=== PATIENT | female | born 1955 | race Asian ===

== ENCOUNTER 2024-06-04 10:08 | Outpatient (AMB) | payer OTHER, SELFPAY ==
[2024-06-04 10:19] VITALS: BP 108/60; PULSE 77; RESP 12; O2SAT 97; BMI 25.8
--- NOTE | 2024-06-04 10:19 | MHC.PC.OV ---
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: Present Accompanied by: Daughter Is last menstrual period known: No Post menopausal: Yes Patient : No Allergies No Known Allergies Allergy (Verified 06/04/24 10:25) Medication List - Last Reconciled 06/04/24 by Andrew Garcia MD calcium acetate 667 mg PO TID cholecalciferol (vitamin D3) 25 mcg PO DAILY Tobacco use date assessed: 06/04/24 Fall risk assessment: No Falls in past year Last assessed Fall Risk: 06/04/24 Dental Screening Dental Screen Date: 06/04/24 Did you have a dental visit in the last 12 months?: No Did you have a dental problem in the last 6 months where you did not have access to dental care?: Yes Was dental information given to patient?: Patient has dentist HPI Establish Care HPI Details New Patient? ?? Prior PCP:?No pcp x 8 yrs Acute issue(s):? h/o lymphoma and had aggressive chemo and never went back. She refuses any treatment. Only wants palliative interventions. ?? PMHx: Lymphoma dx 9 yrs ago. Hyperlipidemia and was on statins. Osteoarthris b/L knees. b/L pneumonia early 2023. Boderline DM. SurgHx:? None FHx:? Mom: Stomach CA. Dad: cirrhosis. Brother: Stomach CA SocHx: Smokes and does not want to quit. EtOH: None. PFSH Social History Housing: Apartment Patient Tobacco Use Status: Current everyday Tobacco user Tobacco use type: Cigarette e-Cigarette/Vaping Use: Never Used Patient : No service: No Current occupational status: retired Cognitive needs: No Hearing needs: No Vision needs: Yes Questionnaire PHQ-9 Over the last 2 weeks, how often have you been bothered by any of the following problems? 1. Little interest or pleasure in doing things: more than half the days 2. Feeling down, depressed, or hopeless: not at all 3. Trouble falling or staying asleep, or sleeping too much: nearly every day 4. Feeling tired or having little energy: nearly every day 5. Poor appetite or overeating: nearly every day 6. Feeling bad about yourself - or that you are a failure or have let yourself or your family down: not at all 7. Trouble concentrating on things, such as reading the newspaper or watching television: nearly every day 8. Moving or speaking so slowly that other people could have noticed. Or the opposite - being so fidgety or restless that you have been moving around a lot more than usual: not at all 9. Thoughts that you would be better off or of hurting yourself in some way: not at all Total score: 14 Depression Screening Interpretation: Positive Depression Screening Done: Yes 69665 - PHQ-9 Billing: Yes Source: Developed by Drs. Boaz Fuentes, Brielle Arellano, Lei Morillo and colleagues, with an educational mckenzie from [employer]. Thrive Questionnaire Date Thrive assessed: 06/04/24 I am a: Parent/Caregiver What is your living situation today?: I have a steady place to live Within the past 12 months, did the food you bought not last and you didn't have the money to get more?: Never true Within the past 12 months, did you worry whether your food would run out before you got money to buy more?: Never true Do you have trouble paying for medicines?: No Do you have trouble getting transportation to medical appointments?: No Do you have trouble paying your heating and electricity bill?: No Do you have trouble taking care of your child, family member or friend?: No Do you have trouble with day-to-day activities such as bathing, preparing meals, shopping, managing finances, etc.?: Yes Are you currently unemployed and looking for a job?: No Are you interested in more education?: No Please select the resources that you would like help with: None Currently or been in a relationship where the following occur: No concerns reported THRIVE Score: 0 AUDIT C Alcohol Use Questionnaire (AUDIT-C) 1. How often do you have a drink containing alcohol?: Never 3. How often do you have six or more drinks on one occasion?: Never Total Score: 0 VICKY-7 AMB Questionnaire VICKY-7 Date VICKY - 7 assessed: 06/04/24 Feeling nervous, anxious, or on edge: 1 = Several days Not being able to stop or control worryin = Several days Worrying too much about different things: 1 = Several days Trouble relaxin = Not at all Being so restless that it is hard to sit still: 0 = Not at all Becoming easily annoyed or irritable: 0 = Not at all Feeling afraid as if something awful might happen: 0 = Not at all Total VICKY-7 score (0-4 normal; 5-9 mild; 10-14 moderate; 15-21 severe): 3 Source: Developed by Drs. Boaz Fuentes, Brielle Arellano, Lei Morillo and colleagues, with an educational mckenzie from [employer]. VICKY-7 Assessment Billing VICKY-7 Assessment Tool: VICKY-7 Assessment 45473 Review of Systems Const Denies chills, Denies fatigue, Denies fever(s), Denies headache(s) and Denies weakness ENT Denies dizziness and Denies headache(s) Card Denies chest pain, Denies lightheadedness, Denies dyspnea and Denies other (Palpitations) Resp Denies cough, Denies dyspnea, Denies wheezing and Denies other ( shortness of breath) Musc Denies numbness and Denies tingling Neuro Denies dizziness, Denies headache(s), Denies numbness, Denies tingling, Denies paresthesias and Denies weakness Psych Denies anxiety and Denies depression Endo Denies fatigue Aller/Immun Denies wheezing Physical exam (Primary Care) Vital Signs: Last Vital Signs Pulse 77 06/04/24 10:19 Resp 12 06/04/24 10:19 BP 108/60 06/04/24 10:19 Pulse Ox 97 06/04/24 10:19 Oxygen Delivery Method Room Air 06/04/24 10:19 BMI result Body Mass Index 25.8 Tobacco/Smoking Status: Tobacco use Status Tobacco use date assessed 06/04/24 06/04/24 10:29 Patient Tobacco Use Status Current everyday Tobacco 06/04/24 10:29 Tobacco use type Cigarette 06/04/24 10:29 e-Cigarette/Vaping Use Never Used 06/04/24 10:29 PHQ-9: PHQ-9 Score PHQ-9: Total score 14 06/04/24 10:29 Depression Screening Interpretation: Positive Thrive Assessment: Date of Thrive Assessment Date Thrive assessed 06/04/24 06/04/24 10:25 Currently or been in a relationship where the following occur: No concerns reported Const General: no acute distress and well developed Nutritional Appearance: well nourished Orientation/consciousness: patient oriented x3 [facility] Head: Yes normocephalic and Yes atraumatic Eyes General: appearance normal, both eyes and all related structures Pupils: Equal, round and reactive pupils present EOM: EOMs intact bilaterally Resp Effort & Inspection: normal respiratory effort Auscultation: clear to auscultation bilaterally Cardio Rate: regular rate Rhythm: regular rhythm Heart sounds: S1 normal heart sound present, S2 normal heart sound present, no gallops, no murmurs and no rubs Neuro General: patient oriented x3 and gait normal Cranial nerves: Yes Equal, round and reactive pupils present Psych Affect: normal affect Coding Level of Care Code New Pt Level 3 (28432) Diagnoses History of lymphoma Z85.72 Osteoarthritis of knees, bilateral M17.0 Hyperlipidemia E78.5 Laboratory exam ordered as part of routine general medical examination Z00.00 Elevated fasting glucose R73.01 Smoker F17.200 Additional Codes VICKY-7 Assessment Billing - VICKY-7 Assessment Tool: VICKY-7 Assessment 03553 ([id number]) PHQ-9 - 48218 - PHQ-9 Billing: Yes ([id number]) Assessment & Plan Assessment & Plan (1) History of lymphoma: Code(s): Z85.72 - Personal history of non-Hodgkin lymphomas Category: Medical Plan: History?of?lymphoma?and?site?unknown Patient?is?adamant?that?she?does?not?want?any?treatment?for?this?and?just?palliative?care. Has?had?a?history?of?what?sounds?like?1?round?of?chemotherapy?and?then?discontinued?it?and?never?went?back?to?Hematology-Oncology.??Declines?any?referral?to?Hematology-Oncology. Will?await?prior?records?to?review Checking?labs?and?will?discuss?with?patient (2) Osteoarthritis of knees, bilateral: Code(s): M17.0 - Bilateral primary osteoarthritis of knee Category: Medical Plan: Bilateral?knee?pain?and ?[id number]??arthritis Continue?Tylenol Ice/heat Topicals Apparently?had?gel?injections?in?the?past?but?these?no?longer?work Will?follow-up?on?notes?when?I?receive?them (3) Hyperlipidemia: Code(s): E78.5 - Hyperlipidemia, unspecified Category: Medical Plan: History?of?hyperlipidemia?and?prior?statin?use.??No?longer?on?statin?medication. Will?check?labs?and?advise?patient (4) Laboratory exam ordered as part of routine general medical examination: Code(s): Z00.00 - Encounter for general adult medical examination without abnormal findings Category: Medical Plan: Check?labs (5) Elevated fasting glucose: Code(s): R73.01 - Impaired fasting glucose Category: Medical Plan: Check?labs?including?A1c (6) Smoker: Code(s): F17.200 - Nicotine dependence, unspecified, uncomplicated Category: Social Hx Plan: Advised?only?fresh?air?in?lungs?but?patient?refuses?to?quit Orders: Orders Comprehensive [place]. Panel Fast Today Z00.00 - Encounter for general adult medical examination without abnormal findings Complete Blood Count Auto Diff Today Z00.00 - Encounter for general adult medical examination without abnormal findings UA and rflx microscopic Today Z00.00 - Encounter for general adult medical examination without abnormal findings TSH reflex Free T4 Today Z00.00 - Encounter for general adult medical examination without abnormal findings Microalbumin, Random (w Creat) Today I10 - Essential (primary) hypertension Lipid Panel Today Z00.00 - Encounter for general adult medical examination without abnormal findings Vitamin D 25-OH Total Today E55.9 - Vitamin D deficiency, unspecified Hemoglobin A1c Today R73.01 - Impaired fasting glucose
== END 2024-06-04 10:57 | disposition home or self-care (01) ==
PROVIDERS: PCP Family Medicine; Visit Provider Family Medicine
DX: Z85.72 Personal history of non-Hodgkin lymphomas (principal); M17.0 Bilateral primary osteoarthritis of knee; E78.5 Hyperlipidemia, unspecified; Z00.00 Encounter for general adult medical examination without abnormal findings; R73.01 Impaired fasting glucose; F17.200 Nicotine dependence, unspecified, uncomplicated

== ENCOUNTER → 2024-06-04 10:08 | Outpatient (BNVA) | payer OTHER, SELFPAY | PROVIDERS: PCP Family Medicine; Visit Provider Family Medicine | DX: M17.0 Bilateral primary osteoarthritis of knee (principal); E78.5 Hyperlipidemia, unspecified; R73.01 Impaired fasting glucose; F17.210 Nicotine dependence, cigarettes, uncomplicated; Z85.72 Personal history of non-Hodgkin lymphomas | CPT/HCPCS: 96127 ==

== ENCOUNTER 2024-08-03 08:18 | Outpatient (REF) | payer OTHER, SELFPAY ==
[2024-08-03 11:37] LABS: Basophils Percent Auto 0.5 % (0-2); Eosinophils Absolute Auto 0.3 X10*3/uL (0.0-0.4); Eosinophils Percent Auto 4.1 % (0-4); Hematocrit 36.7 % (37.0-47.0); Hemoglobin 12.3 g/dl (12.0-16.0); Imm Gran Abs Auto 0.02 X10*3/uL (0.00-0.03); Imm Gran Pct Auto 0.2 % (0.0-0.4); Lymphocytes Absolute Auto 4.4 X10*3/uL (1.2-4.9); Lymphocytes Percent Auto 52.7 % (20-40); MANUAL DIFF FLAG SCAN; Mean Corpuscular HGB Conc 33.5 g/dl (31.0-35.0); Mean Corpuscular Hemoglobin 31.1 pg (27.0-33.0); Mean Corpuscular Volume 92.9 fL (80.0-98.0); Monocytes Absolute Auto 0.3 X10*3/uL (0.1-1.2); Monocytes Percent Auto 3.5 % (2-11); Neutrophils Absolute Auto 3.3 x10*3/uL (2.0-8.3); Platelet Count 247 X10*3/uL (160-400); Red Blood Count 3.95 X10*6/uL (4.20-5.50); Red Cell Distribution Width 12.7 % (11.0-16.0); SCAN SMEAR FLAG 1; White Blood Count 8.4 X10*3/uL (4.8-10.8)
[2024-08-03 11:46] LABS: Appearance Urine Clear; Color Urine Yellow; Glucose Urine UA Negative (Negative); Leukocyte Esterase Urine Trace (Negative); Nitrite Urine Negative (Negative); PH 5.5 (5.0-9.0); Specific Gravity - Urine <= 1.005 (1.005-1.025); UMIC TRIGGER UA YES; Urine Blood Negative (Negative); Urine Ketones Negative (Negative); Urine Protein Negative (Neg-Trace)
[2024-08-03 11:47] LABS: Estimated Average Glucose 203 mg/dL; Hemoglobin A1C 229.5606 umol/L; Hemoglobin A1c % 8.7 % (<6.0); Total Hemoglobin (HGBA1C) 3216.2778 umol/L
[2024-08-03 11:52] LABS: Bacteria Urine None Seen (None Seen); Hyaline Casts Urine 0-2 /LPF (0-2); RBC Urine 0-2 /HPF (0-2); Squamous Epithelial Cell Urine 0-2 /HPF (0-2); WBC Urine 0-5 /HPF (0-5)
[2024-08-03 12:03] LABS: SLIDE REVIEW VERIFIED
[2024-08-03 12:27] LABS: Alanine Aminotransferase 49 U/L (0-31); Albumin Level 4.1 g/dL (3.5-5.0); Alkaline Phosphatase 72 U/L (39-117); Anion Gap 10 (12-20); Aspartate Amino Transferase 44 U/L (5-31); Bilirubin Total 0.7 mg/dL (0.0-1.0); Blood Urea Nitrogen 15 mg/dL (9-16); Calcium 9.2 mg/dL (8.4-10.2); Carbon Dioxide 24 mmol/L (22-29); Chloride 108 mmol/L (96-108); Cholesterol 249 mg/dL (<200); Estimated Glomerular Filt Rate > 60; Glucose Fasting 159 mg/dL (60-99); HDL Cholesterol 41 mg/dL (>40); LDL Cholesterol Calculated 165 mg/dL (<100); Potassium 3.9 mmol/L (3.3-5.1); Sodium 138 mmol/L (135-145); Triglycerides 216 mg/dL (<150)
[2024-08-03 12:43] LABS: TSH reflex Free T4 4.09 uIU/mL (0.32-4.0); Vitamin D 25-OH Total 61.8 ng/mL (>30)
[2024-08-03 12:50] LABS: Creatinine Urine 20.59 mg/dL; Microalbumin Urine < 5.0 mg/L
[2024-08-03 13:50] LABS: Free T4 (Free Thyroxine) 1.04 ng/dL (0.71-1.85)
== END 2024-08-03 08:19 | disposition home or self-care (01) ==
LOC: HO.WFDLDS 08:18
PROVIDERS: Visit Provider Family Medicine
DX: Z00.00 Encounter for general adult medical examination without abnormal findings (principal); I10 Essential (primary) hypertension; R73.01 Impaired fasting glucose; E55.9 Vitamin D deficiency, unspecified
CPT/HCPCS: 36415; 80053; 80061; 81001; 82043; 82306; 82570; 83036; 84439; 84443; 85025

== ENCOUNTER 2024-09-22 08:05 | Outpatient (AMB) | payer OTHER, SELFPAY ==
--- NOTE | 2024-09-22 08:08 | AM.OFFVISMDC ---
Intake Vital Signs 09/22/24 08:18 Height 5 ft 4 in Weight 146 lb BMI 25.1 BP 93/51 L Blood Pressure Location Rt brachial Position Sitting Respiration 16 Pulse 65 Pulse Source Pulse Oximeter Temp 98.3 F Temp Source Oral Pulse Oximetry (%) 98 Oxygen Delivery Method Room Air Intake Visit Reasons: CPE with f/u labs and health maint. 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 THE MEDICARE ANNUAL WELLNESS VISIT (AWV) IS A YEARLY APPOINTMENT WITH A HEALTH PROFESSIONAL TO IDENTIFY HEALTH RISKS AND HELP REDUCE THEM AND TO CREATE OR UPDATE A PERSONALIZED PREVENTION PLAN. DURING A MEDICARE AWV, HEALTH PROFESSIONALS SHOULD ALSO REVIEW ANY CURRENT OPIOID PRESCRIPTIONS, DETECT ANY COGNITIVE IMPAIRMENT, AND ESTABLISH OR UPDATE MEDICAL AND FAMILY HISTORY. 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 b/L pneumonia early 2023, DM2, Current tobacco user, elevated LFT SurgHx: tubal ligation, c section FHx: Mom: Stomach CA. Dad: cirrhosis. Brother: Stomach CA SocHx: Smokes and does not want to quit. EtOH: None. HEALTH MAINTENANCE: SEE SCANNED PREVENTATIVE MEDICINE ASSESSMENT WITH PERSONALIZED HEALTH PLAN AND SCREENING SCHEDULE. COLON:declined MAMMO: declined DEXA: declined PAP 11/2015 ASCUS VACCINES: declined all but Shingles, she will get done at pharmac AAA SCREEN: NA EKG: done today Labs 08/23/24 a1c 8.7%, ^ LFT, ^chol LDL 165, TSH 4.09 NL t4 otherwise normal/unremarkable ELY SHOSHONE OF CARE: None VISUAL ACUITY: glasses, eye exam in the last 1 yaer HEARING SCREENING: + tinnitus never had hearing test, referred today ACP: HCP on file Y dtr; MOLST completed DNR/DNi DIETARY/NUTRITION/EXERCISE EDU PROVIDED: Y DURING THE COURSE OF THE VISIT THE PATIENT WAS EDUCATED AND COUNSELED ABOUT APPROPRIATE SCREENING AND PREVENTATIVE SERVICES. PATIENT INSTRUCTIONS WERE PROVIDED TO THE PATIENT IN WRITTEN OR ELECTRONIC FORMAT. I HAVE REVIEWED AND VERIFIED THE ABOVE INFORMATION. - The patient is a 69-year-old female presenting with an annual medical visit & chronic dz mgmt. - At this visit, diabetes was confirmed as her A1c is elevated at 8.7%. No previous medical treatment has been administered for diabetes, including during pregnancies. - Hyperlipidemia was discussed, and atorvastatin 20 mg once daily was recommended, as previous lipid management was inconsistent. - History of Sq Cell Ca being managed with palliative care, which the patient wishes to continue without escalation of treatment. - Cognitive testing reveals mild deficits, and she expressed slight depressive symptoms but has not sought counseling. - Occasional dizziness was noted, but without any falls. Sleep difficulties were discussed, related to frequent urination at night. - Declined further preventive screenings like mammography, colonoscopy, and updated vaccinations. Social History - Lives independently with some home care assistance, managing personal care but needing some help with household activities. - Drives short distances and manages her medications with family assistance. - Never smoker, consumes alcohol. - Has a daughter involved in her care. - Declined vaccinations for influenza, pneumonia, tetanus, and shingles, despite awareness of risks and recommendations. Health Maintenance - Diabetes confirmed with an Hgb A1c of 8.7%, requiring medical intervention. - Hyperlipidemia management with atorvastatin recommenced. - Ongoing palliative care for lung cancer with no additional curative interventions desired. - Patient declined several preventive screenings: mammogram, colonoscopy, flu shot, pneumonia shot, and tetanus shot. - Referral made for audiology due to reported ear ringing and possible hearing issues. Review of Systems - Cognitive: Reports forgetfulness since chemotherapy, occasional memory lapse. - Neurological: Occasional dizziness upon standing. - Psychological: Mild depressive symptoms, poorer sleep quality due to frequent urination and challenges in returning to sleep after waking. - Musculoskeletal: Denies falls. - Reproductive: Not discussed. - Sensory: Ear ringing present. Physical Exam General: Well developed, well nourished, in no acute distress. Appears stated age. Head: Normocephalic, atraumatic. Eyes: Pupils are equal, round and reactive to light and accommodation. Conjunctivae are clear. Vision grossly normal. Up to date on eye exam. Ears: TMs clear AU, EACS WNL. Reports occasional ringing in ears. Nose: Patent, without discharge. Neck: Supple, no adenopathy or thyromegaly. Breast: Edu on SBE Lungs: Clear to auscultation bilaterally. No rales, rhonchi or wheeze noted. Good air flow in all goldman. Heart: Regular rate and rhythm. No murmurs, click, rubs or gallops are noted. : Deferred. 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 Extremities: No clubbing, cyanosis nor edema is noted. Neurologic: Gait and station normal. Cranial Nerves 2-12 intact. Motor strength grossly symmetrical and intact. No sensory loss. Balance normal. Skin: No rashes, ulcers, or lesions noted. Turgor is good. Skin color is good. Hair and nails are without abnormalities. Psych: Normal eye contact, affect and mood appropriate, and normal interactions. Patient is alert and appropriate to context. Results - Labs: Hemoglobin A1c at 8.7%, indicating diabetes. - Tests: EKG normal; Slight elevation in liver enzymes noted, possibly due to underlying hyperlipidemia. Discussion Notes During the visit, I discussed the patient?s confirmed diabetes and suggested commencing metformin with the plan to start the dose to 1000 mg daily. The patient expressed willingness to initiate oral medication. For hyperlipidemia, atorvastatin was recommended to be restarted at 20 mg once daily. For her cancer, the patient wishes to maintain the current palliative care approach without curative options. Cognition issues and slight depressive symptoms were evaluated; however, the patient declined further mental health interventions. The patient was reminded of the importance of preventative screenings, but she declined them. Upcoming audiology referrals were addressed due to complaints of ear ringing. Lastly, the importance of returning for follow-up care in four months was emphasized, particularly concerning diabetes management. Assessment and Plan 1. Diabetes Mellitus: A1c of 8.7%. We aim to initiate metformin, planning for split doses to 1000 mg daily for insurance coverage. Further evaluation will occur after lab results. 2. Hyperlipidemia: The patient will be treated with atorvastatin at 20 mg to manage lipid levels. Follow-up evaluation will assess lipid control and liver parameters. 3. Cancer: The patient chooses palliative care without further curative treatment. Care decisions focus on comfort and symptom management. 4. Cognitive Impairment: Notable mild cognitive deficits, likely secondary to chemotherapy effects. No further intervention desired, with continued monitoring suggested. 5. Depression: The patient reports mild depressive symptoms but declines therapeutic intervention. She'll be monitored for any changes in mood that might warrant future mental health support. 6. Preventive Care: The patient declined preventive interventions including vaccinations and screening tests. She remains informed about the health benefits but chooses not to proceed. Patient Instructions - Begin taking metformin, two 500 mg tablets once daily with your meal; return for labs in four months. - Resume atorvastatin, one 20 mg tablet daily for cholesterol management. - Maintain current palliative care for lung cancer. - Consider options to monitor mood and cognition; report any significant changes. - Visit the pharmacy for a shingles vaccine if desired, discuss with them regarding administration. - Be aware of follow-up schedules and upcoming audiology referral call. - Return to clinic or walk-in for immediate concerns or changes in health. Consent I discussed with the patient the recommended initiation of metformin for diabetes management and atorvastatin for hyperlipidemia. The patient and her daughter were informed of potential benefits, including improved glucose and lipid control, as well as possible side effects, such as gastrointestinal symptoms for metformin and liver function changes with atorvastatin. The consent to begin these treatments was verbally obtained from the patient. For the shingles vaccination not given due to pharmacy handling, the patient was informed and agreed to discuss with the pharmacy. Her decisions regarding not opting for further preventive screenings and vaccines were also respected and confirmed during the visit. Patient was informed and verbally consented to the use of an ambient scribe for clinic note documentation during this visit. An additional 40 minutes was spent addressing the problem(s) noted at todays visit. This includes time spent before the visit reviewing the chart, time spent during the visit, and time spent after the visit on documentation reviewing laboratory results, diagnostic imaging, medications, performing a medically necessary evaluation, counseling on diagnoses, care coordination, ordering appropriate tests, ordering appropriate medications, review of tests performed by other providers, reporting test results with the patient, communication with other healthcare providers. [facility] Social History Housing: Apartment Patient Tobacco Use Status: Current everyday Tobacco user Tobacco use type: Cigarette e-Cigarette/Vaping Use: Never Used service: No Current occupational status: retired Cognitive needs: No Hearing needs: No Vision needs: Yes Questionnaire Medicare Wellness Checkup [age] What gender do you identify with?: female During the past 4 weeks, how much have you been bothered by emotional problems such as feeling anxious, depressed, irritable, sad or downhearted, and blue?: not at all During the past 4 weeks, has your physical & emotional health limited your social activities with family, friends, neighbors, or groups?: not at all During the past 4 weeks, how much bodily pain have you generally had?: no pain During the past 4 weeks, was someone available to help you if you needed & wanted help?: yes, as much as I wanted During the past 4 weeks, what was the hardest physical activity you could do for at least 2 minutes?: light Can you get to places out of walking distance without help? (For eg., can you travel alone on buses, taxis or drive your car?): Yes Can you go shopping for groceries or clothes without someone's help?: Yes Can you prepare your own meals?: Yes Can you do your housework without help?: No Because of any health problems, do you need the help of another person with your personal care needs such as eating, bathing, dressing or getting around the house?: No Can you handle your own money without help?: Yes During the past 4 weeks, how would you rate your health in general?: excellent During the past 4 weeks how have things been going for you?: very well; could hardly better Are you having difficulties driving your car?: no Do you always fasten your seat belt when you are in a car?: yes, usually During past 4 weeks, have you been bothered by the following: never: Sexual problems?, Trouble eating well?, Teeth or denture problems?, Problems using the telephone? and Tiredness or fatigue? and seldom: Falling or dizzy when standing up Have you fallen 2 or more times in the past year?: No Are you afraid of falling?: No Are you a smoker?: yes, but I'm not ready to quit During the past 4 weeks, how many drinks of wine, beer, or other alcoholic beverages did you have?: no alcohol at all Do you exercise for about 20 minutes 3 or more times a week?: no, I usually do not exercise this much Have you been given information to help with the following?: no: Hazards in your house that might hurt you? and no: Keeping track of your medications? How often do you have trouble taking medicines the way you have been told to take them?: I always take medicine as prescribed How confident are you that you can control & manage most of your health problems?: very confident What is your race?: Activity of Daily Living Bathing - sponge bath, tub bath or shower: receives no assistance (gets in/out by self, if usual bathing means Dressing - getting clothes from closets & drawers, including inner/outer garments & fasteners.: gets clothes & gets completely dressed without help Toileting - going to the 'toilet room' for urine/bowel elimination & cleaning self/arranging clothes: goes to toilet room, cleans self, arranges clothes without help Transfer: moves in & out of bed and chair without help (may use support object) Continence: controls urination/bowel movements completely by self Feeding: feeds self without help Total Score: 0 Information obtained from: patient Using telephone: independent Traveling: independent Shopping: independent Preparing meals: independent Housework: independent Taking medicine: independent Managing money: independent PHQ-9 Over the last 2 weeks, how often have you been bothered by any of the following problems? 1. Little interest or pleasure in doing things: not at all 2. Feeling down, depressed, or hopeless: not at all 3. Trouble falling or staying asleep, or sleeping too much: more than half the days 4. Feeling tired or having little energy: more than half the days 5. Poor appetite or overeating: several days 6. Feeling bad about yourself - or that you are a failure or have let yourself or your family down: not at all 7. Trouble concentrating on things, such as reading the newspaper or watching television: more than half the days 8. Moving or speaking so slowly that other people could have noticed. Or the opposite - being so fidgety or restless that you have been moving around a lot more than usual: not at all 9. Thoughts that you would be better off or of hurting yourself in some way: not at all Total score: 7 Depression Screening Interpretation: Positive Depression Screening Follow-up: Declines treatment Depression Screening Done: Yes 57424 - PHQ-9 Billing: Yes Source: Developed by Drs. Boaz Fuentes, Brielle Arellano, Lei Morillo and colleagues, with an educational mckenzie from [employer]. Physical Exam Vital Signs: Last Vital Signs Temp 98.3 F 09/22/24 08:18 Pulse 65 09/22/24 08:18 Resp 16 09/22/24 08:18 BP 93/51 L 09/22/24 08:18 Pulse Ox 98 09/22/24 08:18 Oxygen Delivery Method Room Air 09/22/24 08:18 BMI result Body Mass Index 25.1 Office Procedures EKG [id number], Complete Vision Screening 47658 - Vision Screening Assessment & Plan Assessment & Plan (1) Encounter for subsequent annual wellness visit (AWV) in Medicare patient: Code(s): Z00.00 - Encounter for general adult medical examination without abnormal findings (2) DM2 (diabetes mellitus, type 2): Code(s): E11.9 - Type 2 diabetes mellitus without complications Qualifiers: Diabetes mellitus supervisor intermediates insulin use: without fdc use Diabetes mellitus complication status: with hyperglycemia Qualified Code(s): E11.65 - Type 2 diabetes mellitus with hyperglycemia (3) DNR (do not resuscitate): Code(s): Z66 - Do not resuscitate (4) Medical orders for life-sustaining treatment (MOLST) form in chart: Code(s): Z78.9 - Other specified health status (5) ACP (advance care planning): Code(s): Z71.89 - Other specified counseling (6) Influenza vaccination declined: Code(s): Z28.21 - Immunization not carried out because of patient refusal (7) Tetanus, diphtheria, and acellular pertussis (Tdap) vaccination declined: Code(s): Z28.21 - Immunization not carried out because of patient refusal (8) Pneumococcal vaccination declined: Code(s): Z28.21 - Immunization not carried out because of patient refusal (9) Tinnitus: Code(s): H93.19 - Tinnitus, unspecified ear Qualifiers: Laterality: bilateral Qualified Code(s): H93.13 - Tinnitus, bilateral (10) Hyperlipidemia: Code(s): E78.5 - Hyperlipidemia, unspecified Qualifiers: Hyperlipidemia type: mixed hyperlipidemia Qualified Code(s): E78.2 - Mixed hyperlipidemia (11) Smoker: Code(s): F17.200 - Nicotine dependence, unspecified, uncomplicated Plan: Smoking Cessation How to Quit There are a lot of ways to quit smoking and many resources to help you. Family members, friends, and co-workers may be supportive or encouraging, but to be successful the desire and commitment to quit must be your own. Most people who have been able to successfully quit smoking made at least one unsuccessful attempt in the past. Try not to view past attempts to quit as failures, but rather as learning experiences. Stopping smoking or using smokeless tobacco is difficult, but anyone can do it. Know the symptoms to expect when you stop. Common symptoms include: ? An intense craving for nicotine ? Anxiety, tension, restlessness, frustration, or impatience ? Difficulty concentrating ? Drowsiness or trouble sleeping, as well as bad dreams and nightmares ? Drowsiness and trouble sleeping ? Headaches ? Increased appetite and weight gain ? Irritability or depression How severe your symptoms are depends on how long you smoked and how many cigarettes you smoked each day. Feel ready to quit? ? First and foremost, set a quit date and quit completely on that day. Before your quit date, you may begin reducing your cigarette use. But remember, there is no safe level of cigarette smoking. ? List the reasons why you want to quit. Include both short- and long-term benefits. ? Identify the times you are most likely to smoke. For example, do you tend to smoke when feeling stressed or down? When out at night with friends? While drinking coffee or alcohol? When bored? While driving? Right after a meal or sex? During a work break? While watching TV or playing cards? When you are with other smokers? ? Let all of your friends, family, and co-workers know of your plan to stop smoking and your quit date. Just being aware that they know what you're going through can be helpful, especially when you are grumpy. ? Get rid of all your cigarettes just before the quit date, and clean out anything that smells like smoke, such as clothes and furniture. Make a plan about what you will do instead of smoking at those times when you are most likely to smoke. ? Be as specific as possible. For example, drink tea instead of coffee -- tea may not trigger the desire for a cigarette. Or, take a walk when you feel stressed. ? Remove ashtrays and cigarettes from the car. Place pretzels or hard candies there instead. Pretend-smoke with a straw. ? Find activities that focus your hands and mind but are not taxing or fattening. Computer games, solitaire, knitting, sewing, and crossword puzzles may help. ? If you normally smoke after eating, find other ways to end a meal. Play a tape or CD, eat a piece of fruit, get up and make a phone call, or take a walk (a good distraction that also hawk calories). Make other changes in your lifestyle. ? Change your daily schedule and habits. Eat at different times or eat several small meals instead of three large ones. Sit in a different chair or even a different room. ? Satisfy your oral habits by eating celery or other low-calorie snack, chewing sugarless gum, or sucking on a cinnamon stick. ? Go to public places and restaurants where smoking is prohibited or restricted. ? Eat regular meals and don't eat too much candy or sweet things. ? Get more exercise. Take walks or ride a bike. Exercise helps relieve the urge to smoke. Set short-term quitting goals and reward yourself when you meet them. ? Every day, put the money you normally spend on cigarettes in a jar. Then buy something pleasurable after a period of time. ? Try not to think about all the days ahead you will need to avoid smoking. Take it one day at a time. ? Even one puff or one cigarette will make your desire for more cigarettes even stronger. However, it is normal to make mistakes. So even if you have one cigarette, you don't need to take the next one. Other tips to help you quit smoking and stick to it: ? Enroll in a smoking cessation program (hospitals, health departments, community centers, and work sites often offer programs). Learn about self-hypnosis or other techniques. ? Ask your health care provider about prescription medications that are safe and appropriate for you. ? Find out about nicotine patches, gum, and sprays. The [place] [employer]'s web site -- www.cancer.org -- is an excellent resource for smokers who are trying to quit, and the [place] [employer] can help some smokers kick the habit. Above all, don't get discouraged if you aren't able to quit smoking the first time. Nicotine addiction is a hard habit to break. Try something different next time. Develop new strategies, and try again. Many people take several attempts to finally kick the habit. 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 (15) Elevated LFTs: Code(s): R79.89 - Other specified abnormal findings of blood chemistry Plan: . (16) Mammogram declined: Code(s): Z53.20 - Procedure and treatment not carried out because of patient's decision for unspecified reasons (17) Colon cancer screening declined: Code(s): Z53.20 - Procedure and treatment not carried out because of patient's decision for unspecified reasons (18) Lung cancer screening declined by patient: Code(s): Z53.20 - Procedure and treatment not carried out because of patient's decision for unspecified reasons Plan: . Plan . Orders: Orders Hemoglobin A1c 3 Months E11.9 - Type 2 diabetes mellitus without complications, E78.5 - Hyperlipidemia, unspecified Lipid Panel 3 Months E11.9 - Type 2 diabetes mellitus without complications, E78.5 - Hyperlipidemia, unspecified Comprehensive [place]. Panel Fast 3 Months E11.9 - Type 2 diabetes mellitus without complications, E78.5 - Hyperlipidemia, unspecified Referrals Audiology Referral H93.19 - Tinnitus, unspecified ear Medications: New metformin ER 1,000 mg (2 x 500 mg) PO DAILY 180 tabs 1RF atorvastatin 20 mg PO BEDTIME 90 tabs 1RF Patient Instructions: Health screenings for women You should visit your health care provider from time to time, even if you are healthy. The purpose of these visits is to: Screen for medical issues Assess your risk for future medical problems Encourage a healthy lifestyle Update vaccinations and other preventive care services Help you get to know your provider in case of an illness Information Even if you feel fine, you should still see your provider for regular checkups. These visits can help you avoid problems in the future. For example, the only way to find out if you have high blood pressure is to have it checked regularly. High blood sugar and high cholesterol levels also may not have any symptoms in the early stages. A simple blood test can check for these conditions. There are specific times when you should see your provider or receive specific health screenings. The [place] Preventive Services Task Force publishes a list of recommended screenings. Below are screening guidelines for women ages 18 to 39. BLOOD PRESSURE SCREENING Your blood pressure should be checked at least once every 3 to 5 years if: Your blood pressure is in the normal range (top number less than 120 mm Hg and bottom number less than 80 mm Hg) You don't have risk factors for high blood pressure Ask your provider if you need your blood pressure checked more often if: The top number is 120 to 129 mm Hg or the bottom number is 70 to 79 mm Hg You have diabetes, heart disease, kidney problems, are overweight, or have certain other health conditions You have a first-degree relative with high blood pressure You are Black You had high blood pressure during a If the top number is 130 mm Hg or greater or the bottom number is 80 mm Hg or greater, this is considered stage 1 hypertension. Schedule an appointment with your provider to learn how you can reduce your blood pressure. Watch for blood pressure screenings in your area. Ask your provider if you can stop in to have your blood pressure checked. BREAST CANCER SCREENING Experts do not agree about the benefits of breast self-exams in finding breast cancer or saving lives. Talk to your provider about what is best for you. A screening mammogram is not recommended for most women under age 40. Your provider may discuss and recommend mammograms, MRI scans, or ultrasounds if you have an increased risk for breast cancer, such as: A mother or sister who had breast cancer at a young age (most often starting screening earlier than the age the close relative was diagnosed) You carry a high-risk genetic marker CERVICAL CANCER SCREENING Cervical cancer screening should start at age 21 years unless your provider advises otherwise. After the first test: Women ages 21 through 29 should have a Pap test every 3 years. Exoprts do not agree on whether HPV testing is recommended for this age group. Women ages 30 through 65 should be screened with either a Pap test every 3 years or the HPV test every 5 years or both tests every 5 years (called cotesting ). Women who have been treated for precancer (cervical dysplasia) should continue to have Pap tests for 20 years after treatment or until age 65, whichever is longer. If you have had your uterus and cervix removed (total hysterectomy), and you have not been diagnosed with cervical cancer or precancer (high grade cervical neoplasia), you do not need cervical cancer screening. CHOLESTEROL SCREENING Cholesterol screening should begin at: Age 45 for women with no known risk factors for coronary heart disease Age 20 for women with known risk factors for coronary heart disease Repeat cholesterol screening should take place: Every 5 years for women with normal cholesterol levels More often if changes occur in lifestyle (including weight gain and diet) More often if you have diabetes, heart disease, kidney problems, or certain other conditions DIABETES SCREENING You should be screened for diabetes starting at age 35 and then repeated every 3 years if you have no risk factors for diabetes. Screening may need to start earlier and be repeated more often if you have other risk factors for diabetes, such as: You have a first degree relative with diabetes. You are overweight or have obesity. You have high blood pressure, prediabetes, or a history of heart disease. Screening for diabetes should be done if you are planning to become and you are overweight and have other risk factors such as high blood pressure. DENTAL EXAM Go to the dentist once or twice every year for an exam and cleaning. Your dentist will evaluate if you need more frequent visits. EYE EXAM Have an eye exam every 5 to 10 years before age 40. If you have vision problems, have an eye exam every 2 years or more often if recommended by your provider. You should have an eye exam that includes an examination of your retina (back of your eye) at least every year if you have diabetes. IMMUNIZATIONS Commonly needed vaccines include: Flu shot: get one every year. COVID-19 vaccine: ask your provider what is best for you. Tetanus-diphtheria and acellular pertussis (Tdap) vaccine: have one at or after age 19 as one of your tetanus-diphtheria vaccines if you did not receive it as an adolescent. Tetanus-diphtheria: have a booster (or Tdap) every 10 years. Varicella vaccine: receive 2 doses if you never had chickenpox or the varicella vaccine. Hepatitis B vaccine: receive 2, 3, or 4 doses, depending on your exact circumstances. Measles, mumps, and rubella (MMR) vaccine: receive 1 to 2 doses if you are not already immune to MMR. Your provider can tell you if you are immune. Ask your provider about the human papillomavirus (HPV) vaccine if: You have not received the HPV vaccine in the past You have not completed the full vaccine series (you should catch up on this shot) Ask your provider if you should receive other immunizations if you have certain health problems that increase your risk for some diseases such as pneumonia. INFECTIOUS DISEASE SCREENING Women who are sexually active should be screened for chlamydia and gonorrhea up until age 25. Women 25 years and older should be screened for chlamydia and gonorrhea if at high risk. Screening for hepatitis C: All adults ages 18 to 79 should get a one-time test for hepatitis C. people should be screened at every . Screening for human immunodeficiency virus (HIV): All people ages 15 to 65 should get a one-time test for HIV. Depending on your lifestyle and medical history, you may also need to be screened for infections such as syphilis and HIV, as well as other infections. PHYSICAL EXAM All adults should visit their provider from time to time, even if they are healthy. The purpose of these visits is to: Screen for disease Assess your risk of future medical problems Encourage a healthy lifestyle Update your vaccinations and other preventive care services Maintain a relationship with a provider in case of an illness Your height, weight, and BMI should be checked at every exam. During your exam, your provider may ask you about: Depression and anxiety Diet and exercise Alcohol and tobacco use Safety issues, such as using seat belts, smoke detectors, and intimate partner violence Your medicines and risk for interactions SKIN SELF-EXAM Your provider may check your skin for signs of skin cancer, especially if you're at high risk, such as if you: Have had skin cancer before Have close relatives with skin cancer Have a weakened immune system OTHER SCREENING Talk with your provider about colon cancer screening if you have a strong family history of colon cancer or polyps, or if you have had inflammatory bowel disease or polyps yourself. Routine bone density screening of women under 40 is not recommended. Quality Reporting (2019) Adult ([facility] 138/2/22/69) Smoking risk assessment performed?: Yes Patient Tobacco Use Status: Current everyday Tobacco user Tobacco cessation counseling provided: Yes Pharmacotherapy not ordered: Yes (pt declined) Depression screening performed: Yes Systolic BP not done?: No Diastolic BP not done?: No BMI screening not done: No Sexual Activity Screening ([facility] 153) Sexually active?: No Immunizations ([facility] 147, 117) Annual Influenza Vaccine: No Flu Vaccine not done: patient reason Measles Antibody Test: No Mumps Antibody Test: No Rubella Antibody Test: No Varicella Antibody Test: No Anti Hepatitis A IgG Antigen test: No Anti Hepatitis B Virus Surface Ab test: No Diabetes ([facility] 131/134/142) Date of last retinal or dilated eye exam: 08/02/24 Fall Risk Screening ([facility] 139) Last assessed Fall Risk: 09/22/24 Fall risk assessment: No Falls in past year Dementia Assessment ([facility] 149) Cognitive assessment recorded: Yes Assessment of cognition with standardized tool: Yes (03/24 on CIT ) Depression/Bipolar (159/160/161/177) PHQ-9: Total score: 7 Ophthalmol:Cataracts Visual Acuity (133) Visual acuity exam performed: Yes (see results ) Coding Level of Care Code Medicare Subsequent (G0439) Est Pt Level 5 (33921) Diagnoses Encounter for subsequent annual wellness visit (AWV) in Medicare patient Z00.00 Type 2 diabetes mellitus with hyperglycemia, without long-term current use of insulin E11.65 Diabetes mellitus fdc insulin use: without fdc use Diabetes mellitus complication status: with hyperglycemia DNR (do not resuscitate) Z66 Medical orders for life-sustaining treatment (MOLST) form in chart Z78.9 ACP (advance care planning) Z71.89 Influenza vaccination declined Z28.21 Tetanus, diphtheria, and acellular pertussis (Tdap) vaccination declined Z28.21 Pneumococcal vaccination declined Z28.21 Tinnitus of both ears H93.13 Laterality: bilateral Mixed hyperlipidemia E78.2 Hyperlipidemia type: mixed hyperlipidemia Smoker F17.200 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 C77.9; C80.1 Colon adenoma D12.6 Osteopenia, unspecified location M85.80 Osteopenia location: unspecified Elevated LFTs R79.89 Mammogram declined Z53.20 Colon cancer screening declined Z53.20 Lung cancer screening declined by patient Z53.20 CPT Codes Advance Care Planning - Time spent: 1-15 minutes, on File ([id number]) EKG - CPT: 08745-[id number], Complete ([id number]) Vision Screening - Vision Screenin - Vision Screening ([id number]) Additional Codes PHQ-9 - 93906 - PHQ-9 Billing: Yes ([id number]) Advance Care Planning Advance Care Planning discussion: Completed/Scanned Date of discussion: 09/22/24 Who was present: dtr and patient Forms completed: Health Care Proxy, MOLST and Living will Time spent: 1-15 minutes, on File Actual minutes spent: 10
[2024-09-22 08:18] VITALS: BP 93/51; PULSE 65; RESP 16; TEMP 36.8; O2SAT 98; BMI 25.1
--- OUTSIDE RECORDS SUMMARY | 2024-09-22 08:20 | XMS_ITS | Clinical Summary ---
Author Organization [facility] Address [address] [place] [id number] Phone Care Team Providers Care Hoisting Machine Operator Name Role Phone Pcp, None Primary Care Provider Unavailabl e Social History Tobacco Use Types Packs/Day Years Used Date Smoking Tobacco: Never Assessed Sex and Gender Information Value Date Recorded Sex Assigned at Not on file Gender Identity Not on file Sexual Orientation Not on file Last Filed Vital Signs Vital Sign Reading Time Taken Comments Blood Pressure 128/69 01/04/2023 4:54 PM EDT Pulse 67 01/04/2023 4:54 PM EDT Temperature 36.2 ??C (97.1 ??F) 01/04/2023 4:54 PM ED T Respiratory Rate 20 01/04/2023 4:54 PM EDT Oxygen Saturation 98% 01/04/2023 4:54 PM EDT Inhaled Oxygen Concentration - - Weight - - Height - - Body Mass Index - - Plan of Treatment Not on file Care Teams Hoisting Machine Operator Relationship Specialty Start Date End Date Pcp, None, PCP - General 01/04/23
== END 2024-09-22 09:07 | disposition home or self-care (01) ==
PROVIDERS: PCP Family Medicine; Visit Provider Nurse Practitioner Family
DX: Z00.00 Encounter for general adult medical examination without abnormal findings (principal); E11.65 Type 2 diabetes mellitus with hyperglycemia; C77.9 Secondary and unspecified malignant neoplasm of lymph node, unspecified; C80.1 Malignant (primary) neoplasm, unspecified; Z66 Do not resuscitate; Z78.9 Other specified health status; Z71.89 Other specified counseling; Z28.21 Immunization not carried out because of patient refusal; H93.13 Tinnitus, bilateral; E78.2 Mixed hyperlipidemia; F17.200 Nicotine dependence, unspecified, uncomplicated; D12.6 Benign neoplasm of colon, unspecified

== ENCOUNTER → 2024-09-22 08:05 | Outpatient (BNVA) | payer OTHER, SELFPAY | PROVIDERS: PCP Family Medicine; Visit Provider Nurse Practitioner Family | DX: Z00.00 Encounter for general adult medical examination without abnormal findings (principal); E11.65 Type 2 diabetes mellitus with hyperglycemia; H93.13 Tinnitus, bilateral; E78.2 Mixed hyperlipidemia; F17.200 Nicotine dependence, unspecified, uncomplicated; C80.1 Malignant (primary) neoplasm, unspecified; C77.9 Secondary and unspecified malignant neoplasm of lymph node, unspecified; D12.6 Benign neoplasm of colon, unspecified; M85.80 Other specified disorders of bone density and structure, unspecified site; R79.89 Other specified abnormal findings of blood chemistry; Z28.21 Immunization not carried out because of patient refusal; Z71.89 Other specified counseling; Z78.9 Other specified health status; Z66 Do not resuscitate; Z92.21 Personal history of antineoplastic chemotherapy; Z92.3 Personal history of irradiation | CPT/HCPCS: 93005; 96127 ==

== ENCOUNTER 2025-01-14 08:58 | Outpatient (REF) | payer MEDICARE, SELFPAY ==
--- OUTSIDE RECORDS SUMMARY | 2025-01-14 09:09 | XMS_ITS | Clinical Summary ---
Author Organization [facility] Address [address] [place] [phone] Phone Care Team Providers Care Java Android Developer Name Role Phone Pcp, None Primary Care [...] 67 01/04/2023 4:54 PM EDT Temperature 36.2 C (97.1 F) 01/04/2023 4:54 PM EDT Respiratory Rate 20 01/04/2023 4:54 PM EDT Oxygen Saturation 98% 01/04/2023 4:54 PM EDT Inhaled Oxygen Concentration - - Weight - - Height - - Body Mass Index - - Plan of Treatment Not on file Care Teams Java Android Developer Relationship Specialty Start Date End Date Pcp, None, PCP - General 6/10/23
[2025-01-14 10:37] LABS: Alanine Aminotransferase 43 U/L (0-31); Albumin Level 4.4 g/dL (3.5-5.0); Alkaline Phosphatase 123 U/L (39-117); Anion Gap 11 (12-20); Aspartate Amino Transferase 34 U/L (5-31); Bilirubin Total 0.7 mg/dL (0.0-1.0); Blood Urea Nitrogen 15 mg/dL (9-16); Calcium 9.1 mg/dL (8.4-10.2); Carbon Dioxide 26 mmol/L (22-29); Chloride 107 mmol/L (96-108); Cholesterol 122 mg/dL (<200); Estimated Glomerular Filt Rate > 60; Glucose Fasting 118 mg/dL (60-99); HDL Cholesterol 40 mg/dL (>40); LDL Cholesterol Calculated 59 mg/dL (<100); Potassium 4.3 mmol/L (3.3-5.1); Sodium 140 mmol/L (135-145); Total Protein 7.7 g/dL (6.5-8.0); Triglycerides 118 mg/dL (<150)
[2025-01-14 10:53] LABS: Estimated Average Glucose 131 mg/dL; Hemoglobin A1c % 6.2 % (<6.0)
== END 2025-01-14 08:59 | disposition home or self-care (01) ==
LOC: HO.HMGCLDS 08:58
PROVIDERS: PCP Nurse Practitioner Family; Visit Provider Nurse Practitioner Family
DX: E11.9 Type 2 diabetes mellitus without complications (principal); E78.5 Hyperlipidemia, unspecified
CPT/HCPCS: 36415; 80053; 80061; 83036

== ENCOUNTER 2025-01-21 08:37 | Outpatient (AMB) | payer OTHER, SELFPAY ==
--- NOTE | 2025-01-21 08:41 | A.OFFPC_ITS ---
Vital Signs 01/21/25 08:55 Height 5 ft 4 in Weight 140 lb BMI 24.0 BP 104/56 L Blood Pressure Location Rt brachial Position Sitting Respiration 14 Pulse 70 Pulse Source Pulse Oximeter Temp 97.8 F Temp Source Oral Pulse Oximetry (%) 96 Oxygen Delivery Method Room Air Intake Visit Reasons: [address] Neri WEBB, JANIE labs 1 week before Intake Note: Follow up diabetes, labs. Pharmacy Director Required: No Pharmacy Director Name: children teacher declined Accompanied by: Daughter Allergies No Known Allergies Allergy (Verified 01/21/25 08:48) Medication List - Last Reconciled 01/21/25 by Andrew Garcia MD atorvastatin 20 mg PO DAILY 90 days calcium acetate 667 mg PO TID cholecalciferol (vitamin D3) 25 mcg PO DAILY metformin ER 1,000 mg (2 x 500 mg) PO DAILY multivitamin (Daily Multi-Vitamin tablet) 1 tab PO DAILY Tobacco use date assessed: 01/21/25 Fall risk assessment: No Falls in past year Last assessed Fall Risk: 01/21/25 Dental Screening Dental Screen Date: 01/21/25 Did you have a dental visit in the last 12 months?: Yes Did you have a dental problem in the last 6 months where you did not have access to dental care?: No Was dental information given to patient?: Patient has dentist HPI 4 mo JANIE Basurto labs 1 week before HPI Details 69 y/o female presesnts to f/u diabetes, HLD, labs. Labs drawn 01/14/25. Reviewed labs with pt. A1c 6.2%. Fasting glucose 118. Elevated liver enzymes - AST 34, ALT 43. Uses tylenol sparingly a couple times a week. Triglycerides 118. TC 122. LDL improved from 165 to 59. She is on artovastatin 20mg. She notes taking statins at night has been causing her abd. discomfort which alleviates when she eats something. Reports knee pain. Has already had injections in the past. Reports fatigue. Does note some depression. PFSH Surgical History (Updated 01/21/25 @ 08:54 by Missy Hines CMA) H/O tooth extraction Social History (Updated 01/21/25 @ 08:55 by Missy Hines CMA) Housing: Condominium Alcohol intake: never Patient Tobacco Use Status: Current everyday Tobacco user Tobacco use type: Cigarette Cigarettes Per Day: 10 Years Smoked: 42 e-Cigarette/Vaping Use: Never Used Second Hand Smoke Exposure: No service: No Current occupational status: retired Cognitive needs: No Hearing needs: No Vision needs: Yes Questionnaire PHQ-9 Over the last 2 weeks, how often have you been bothered by any of the following problems? 1. Little interest or pleasure in doing things: more than half the days 2. Feeling down, depressed, or hopeless: several days 3. Trouble falling or staying asleep, or sleeping too much: not at all 4. Feeling tired or having little energy: nearly every day 5. Poor appetite or overeating: not at all 6. Feeling bad about yourself - or that you are a failure or have let yourself or your family down: not at all 7. Trouble concentrating on things, such as reading the newspaper or watching television: nearly every day 8. Moving or speaking so slowly that other people could have noticed. Or the opposite - being so fidgety or restless that you have been moving around a lot more than usual: not at all 9. Thoughts that you would be better off or of hurting yourself in some way: not at all Total score: 9 Depression Screening Interpretation: Positive Depression Screening Done: Yes 79733 - PHQ-9 Billing: Yes Source: Developed by Drs. Boaz Fuentes, Brielle Arellano, Lei Morillo and colleagues, with an educational mckenzie from [employer]. Thrive Questionnaire Date Thrive assessed: 09/15/24 I am a: Parent/Caregiver What is your living situation today?: I have a steady place to live Within the past 12 months, did the food you bought not last and you didn't have the money to get more?: Never true Within the past 12 months, did you worry whether your food would run out before you got money to buy more?: Never true Do you have trouble paying for medicines?: No Do you have trouble getting transportation to medical appointments?: No Do you have trouble paying your heating and electricity bill?: No Do you have trouble taking care of your child, family member or friend?: No Do you have trouble with day-to-day activities such as bathing, preparing meals, shopping, managing finances, etc.?: No Are you currently unemployed and looking for a job?: No Are you interested in more education?: No Please select the resources that you would like help with: None Currently or been in a relationship where the following occur: No concerns reported THRIVE Score: 0 AUDIT C Alcohol Use Questionnaire (AUDIT-C) 1. How often do you have a drink containing alcohol?: Never 3. How often do you have six or more drinks on one occasion?: Never Total Score: 0 VICKY-7 AMB Questionnaire VICKY-7 Date VICKY - 7 assessed: 01/21/25 Feeling nervous, anxious, or on edge: 1 = Several days Not being able to stop or control worryin = Not at all Worrying too much about different things: 0 = Not at all Trouble relaxin = Not at all Being so restless that it is hard to sit still: 0 = Not at all Becoming easily annoyed or irritable: 0 = Not at all Feeling afraid as if something awful might happen: 0 = Not at all Total VICKY-7 score (0-4 normal; 5-9 mild; 10-14 moderate; 15-21 severe): 1 Source: Developed by Drs. Boaz Fuentes, Brielle Arellano, Lei Morillo and colleagues, with an educational mckenzie from [employer]. VICKY-7 Assessment Billing VICKY-7 Assessment Tool: VICKY-7 Assessment 86343 Review of Systems Const Denies chills, Reports fatigue, Denies fever(s), Denies headache(s) and Denies weakness ENT Denies dizziness and Denies headache(s) Card Denies dyspnea Resp Denies cough, Denies dyspnea, Denies wheezing and Denies other (shortness of breath) Musc Denies numbness and Denies tingling Neuro Denies dizziness, Denies headache(s), Denies numbness, Denies tingling and Denies weakness Psych Denies anxiety and Denies depression Endo Reports fatigue Aller/Immun Denies wheezing Physical exam (Primary Care) Vital Signs: Last Vital Signs Temp 97.8 F 01/21/25 08:55 Pulse 70 01/21/25 08:55 Resp 14 01/21/25 08:55 BP 104/56 L 01/21/25 08:55 Pulse Ox 96 01/21/25 08:55 Oxygen Delivery Method Room Air 01/21/25 08:55 BMI result Body Mass Index 24.0 Tobacco/Smoking Status: Tobacco use Status Tobacco use date assessed 01/21/25 01/21/25 08:58 Patient Tobacco Use Status Current everyday Tobacco 01/21/25 08:55 Tobacco use type Cigarette 01/21/25 08:55 e-Cigarette/Vaping Use Never Used 01/21/25 08:55 PHQ-9: PHQ-9 Score PHQ-9: Total score 9 01/21/25 09:15 Depression Screening Interpretation: Positive Thrive Assessment: Date of Thrive Assessment Date Thrive assessed 09/15/24 01/21/25 08:42 Currently or been in a relationship where the following occur: No concerns reported Const General: well developed; No acute distress Nutritional Appearance: well nourished Orientation/consciousness: patient oriented x3 HENMT Head: Yes normocephalic and Yes atraumatic Eyes General: appearance normal, both eyes and all related structures Pupils: Equal, round and reactive pupils present EOM: EOMs intact bilaterally Resp Effort & Inspection: normal respiratory effort Neuro General: patient oriented x3 and gait normal Cranial nerves: Yes Equal, round and reactive pupils present Psych Affect: normal affect Coding Level of Care Code Est Pt Level 4 (21331) Diagnoses Type 2 diabetes mellitus with hyperglycemia, without long-term current use of insulin E11.65 Diabetes mellitus complication status: with hyperglycemia Diabetes mellitus termite exterminator helper insulin use: without termite exterminator helper use Mixed hyperlipidemia E78.2 Hyperlipidemia type: mixed hyperlipidemia Elevated LFTs R79.89 Fatigue R53.83 Knee pain M25.569 Depression F32.A Additional Codes VICKY-7 Assessment Billing - VICKY-7 Assessment Tool: VICKY-7 Assessment 88417 ([id number]) PHQ-9 - 66587 - PHQ-9 Billing: Yes ([id number]) Assessment & Plan Assessment & Plan (1) DM2 (diabetes mellitus, type 2): Code(s): E11.9 - Type 2 diabetes mellitus without complications Category: Medical Qualifiers: Diabetes mellitus complication status: with hyperglycemia Diabetes mellitus termite exterminator helper insulin use: without skilled nursing use Qualified Code(s): E11.65 - Type 2 diabetes mellitus with hyperglycemia Plan: A1c?shows?good?control.??Goal?is?less?than?7.0% Continue?metformin Continue?diabetic?diet (2) Hyperlipidemia: Code(s): E78.5 - Hyperlipidemia, unspecified Category: Medical Qualifiers: Hyperlipidemia type: mixed hyperlipidemia Qualified Code(s): E78.2 - Mixed hyperlipidemia Plan: Lipids?now?well?controlled?on?atorvastatin Continue?atorvastatin (3) Elevated LFTs: Code(s): R79.89 - Other specified abnormal findings of blood chemistry Category: Medical Plan: Mildly?elevated?LFTs?which?have?declined?from?prior?check Increase?hydration Will?continue?to?monitor (4) Fatigue: Code(s): R53.83 - Other fatigue Category: Medical Plan: Fatigue?which?is?likely?multifactorial She?does?have?depression?though?she?declines?therapy?and medication. TSH?mildly?out?of?range?in?the?will?recheck?this She?is?getting?variable?amounts?of?sleep?and?feels?rested?some?of?the?time Encouraged?h er?to?work?on?increasing?sleep?as?well?as?increasing?activity?and?exercise?and?s ocialization Will?obtain?a?monitor?and?follow-up?at?next?visit (5) Knee pain: Code(s): M25.569 - Pain in unspecified knee Category: Medical Plan: Longstanding?bilateral?knee?pain. She?had?been?getting?knee?injections?about?8?years?ago?but?this?was?discontinued ?after?diagnosis?of?metastatic?squamous?cell?cancer. We?discussed medication?but?she?only?wants?to?use Tylenol?and?can?continue?doing?so We?discussed?physical?therapy?and?she?will?perform?exercises?at?home?for?now. (6) Depression: Code(s): F32.A - Depression, unspecified Category: Medical Plan: Patient?acknowledges?depression?but?declines?medication?or?therapist Increase?activity Increase?social?interaction Work?at?improved?sleep Will?continue?to?follow Plan Patient?also?had?concerns?regarding?weight?loss?but?weight?is?appropriate. Will?continue?to?monitor Orders: Orders Free T4 (Free Thyroxine) Today E03.9 - Hypothyroidism, unspecified Triiodothyronine T3 Total Today E03.9 - Hypothyroidism, unspecified Complete Blood Count Auto Diff Today E11.65 - Type 2 diabetes mellitus with hyperglycemia, Z00.00 - Encounter for general adult medical examination without abnormal findings TSH reflex Free T4 Today Z00.00 - Encounter for general adult medical examination without abnormal findings Comprehensive [place]. Panel Fast Today E11.65 - Type 2 diabetes mellitus with hyperglycemia, Z00.00 - Encounter for general adult medical examination without abnormal findings Vitamin D 25-OH Total Today E11.65 - Type 2 diabetes mellitus with hyperglycemia, E55.9 - Vitamin D deficiency, unspecified Medications: Changed From atorvastatin 20 mg PO BEDTIME 90 tabs 1RF E11.65 - Type 2 diabetes mellitus with hyperglycemia To atorvastatin 20 mg PO DAILY 90 tabs 2RF 90 days E11.65 - Type 2 diabetes mellitus with hyperglycemia
--- OUTSIDE RECORDS SUMMARY | 2025-01-21 08:48 | XMS_ITS | Clinical Summary ---
Author Organization [facility] Address [address] [place] [phone] Phone Care Team Providers Care Alley Cleaner Name Role Phone Pcp, None Primary Care [...] of Treatment Not on file Care Teams Alley Cleaner Relationship Specialty Start Date End Date Pcp, None, PCP - General 6/10/23
[2025-01-21 08:55] VITALS: BP 104/56; PULSE 70; RESP 14; TEMP 36.6; O2SAT 96; BMI 24.0
== END 2025-01-21 09:43 | disposition home or self-care (01) ==
LOC: HO.HMCFM 08:37
PROVIDERS: PCP Family Medicine; Visit Provider Family Medicine
DX: E11.65 Type 2 diabetes mellitus with hyperglycemia (principal); E78.2 Mixed hyperlipidemia; R79.89 Other specified abnormal findings of blood chemistry; R53.83 Other fatigue; M25.569 Pain in unspecified knee; F32.A Depression, unspecified

== ENCOUNTER → 2025-01-21 08:37 | Outpatient (BNVA) | payer OTHER, SELFPAY | PROVIDERS: PCP Family Medicine; Visit Provider Family Medicine | DX: E11.65 Type 2 diabetes mellitus with hyperglycemia (principal); E78.2 Mixed hyperlipidemia; R79.89 Other specified abnormal findings of blood chemistry; R53.83 Other fatigue; F32.A Depression, unspecified | CPT/HCPCS: 96127 ==

== ENCOUNTER 2025-04-25 07:10 | Outpatient (REF) | payer OTHER, SELFPAY ==
--- OUTSIDE RECORDS SUMMARY | 2025-04-25 07:13 | XMS_ITS | Clinical Summary ---
Author Organization [facility] Address [address] [place] [phone] Phone Care Team Providers Care Color Matcher Name Role Phone Pcp, None Primary Care [...] of Treatment Not on file Care Teams Color Matcher Relationship Specialty Start Date End Date Pcp, None, PCP - General 6/10/23
[2025-04-25 09:57] LABS: MANUAL DIFF FLAG NO
[2025-04-25 10:06] LABS: Hematocrit 34.4 % (37.0-47.0); Hemoglobin 11.2 g/dl (12.0-16.0); Imm Gran Abs Auto 0.02 X10*3/uL (0.00-0.03); Imm Gran Pct Auto 0.3 % (0.0-0.4); Lymphocytes Absolute Auto 3.9 X10*3/uL (1.2-4.9); Mean Corpuscular HGB Conc 32.6 g/dl (31.0-35.0); Mean Corpuscular Hemoglobin 31.1 pg (27.0-33.0); Mean Corpuscular Volume 95.6 fL (80.0-98.0); NRBC Abs Auto 0.000 X10*3/uL (0.0-0.012); NRBC Pct Auto 0.0 /100WBC (0.0-0.2); Platelet Count 214 X10*3/uL (160-400); Red Blood Count 3.60 X10*6/uL (4.20-5.50); White Blood Count 7.6 X10*3/uL (4.8-10.8)
[2025-04-25 10:50] LABS: Alanine Aminotransferase 18 U/L (0-31); Albumin Level 4.2 g/dL (3.5-5.0); Alkaline Phosphatase 71 U/L (39-117); Anion Gap 13 (12-20); Aspartate Amino Transferase 22 U/L (5-31); Blood Urea Nitrogen 14 mg/dL (9-16); Calcium 9.1 mg/dL (8.4-10.2); Carbon Dioxide 26 mmol/L (22-29); Chloride 107 mmol/L (96-108); Estimated Glomerular Filt Rate > 60; Free T4 (Free Thyroxine) 0.94 ng/dL (0.71-1.85); Potassium 4.5 mmol/L (3.3-5.1); Sodium 141 mmol/L (135-145); Total Protein 7.7 g/dL (6.5-8.0)
== END 2025-04-25 07:11 | disposition home or self-care (01) ==
LOC: HO.HMGCLDS 07:10
PROVIDERS: PCP Family Medicine; Visit Provider Family Medicine
DX: Z00.00 Encounter for general adult medical examination without abnormal findings (principal); E11.65 Type 2 diabetes mellitus with hyperglycemia; E03.9 Hypothyroidism, unspecified; E55.9 Vitamin D deficiency, unspecified
CPT/HCPCS: 36415; 80053; 82306; 84439; 84443; 84480; 85025

== ENCOUNTER 2025-04-26 10:26 | Outpatient (AMB) | payer OTHER, SELFPAY ==
--- NOTE | 2025-04-26 10:31 | A.OFFPC_ITS ---
Vital Signs 04/26/25 10:38 Height 5 ft 4 in Weight 133 lb 6 oz BMI 22.9 BP 102/58 L Blood Pressure Location Rt brachial Position Sitting Respiration 14 Pulse 71 Pulse Source Pulse Oximeter Temp 97.7 F Temp Source Temporal Artery Scan Pulse Oximetry (%) 97 Oxygen Delivery Method Room Air Intake Visit Reasons: review labs Intake Note: Aimee presents in the office today for a a receive of her lab results. Geography Head Required: Yes Geography Head Name: Kathy [id number] Allergies Seasonal Allergies Allergy (Verified 04/26/25 10:36) Watery Eyes Medication List - Last Reconciled 04/26/25 by Andrew Garcia MD atorvastatin 20 mg PO DAILY 90 days blood sugar diagnostic (FreeStyle Lite Strips) DX: E11.9, test blood sugar Once a day, 90 days blood sugar diagnostic (Accu-Chek Guide test strips) Test blood sugar twice a day As directed, 90 day blood-glucose meter (Accu-Chek Guide Glucose Meter) Test blood sugar As directed, 999 days blood-glucose meter (FreeStyle Lite Meter kit) DX: E11.9, test blood as directed, duration 999 days calcium acetate 667 mg PO TID cholecalciferol (vitamin D3) 25 mcg PO DAILY lancets (FreeStyle Lancets) Once a day As directed, 90 days lancets (Accu-Chek Softclix Lancets) Test blood sugar twice a day As directed, 90 days metformin ER 1,000 mg (2 x 500 mg) PO DAILY multivitamin (Daily Multi-Vitamin tablet) 1 tab PO DAILY Tobacco use date assessed: 04/26/25 Fall risk assessment: No Falls in past year Last assessed Fall Risk: 04/26/25 Dental Screening Dental Screen Date: 04/26/25 Did you have a dental visit in the last 12 months?: Yes Did you have a dental problem in the last 6 months where you did not have access to dental care?: Yes Was dental information given to patient?: Patient has dentist HPI review labs HPI Details 70 y/o female presents to f/u chronic co nditions. A1c today 04/26/25 6.3%. She is on metformin 1000mg daily. Labs drawn 04/25/25. Reviewed labs with pt. Ongoing mild anemia. TSH 4.72 uIU/mL. Free T4 0.94. Total T3 109. Ongoing complaints of fatigue. Reports frequent urination x6 months. PFSH Surgical History (Updated 01/21/25 @ 08:54 by Missy Hines [facility]) H/O tooth extraction Social History (Updated 04/26/25 @ 10:38 by Loli Alcocer [facility]) Housing: Condominium Alcohol intake: never Patient Tobacco Use Status: Current everyday Tobacco user Tobacco use type: Cigarette Cigarettes Per Day: 10 Years Smoked: 42 Packs per year/per ci.00 e-Cigarette/Vaping Use: Never Used Second Hand Smoke Exposure: No Use of substances other than those prescribed or required for medical reasons: No service: No Current occupational status: retired Cognitive needs: No Hearing needs: No Vision needs: Yes Questionnaire Thrive Questionnaire Date Thrive assessed: 09/15/24 I am a: Parent/Caregiver What is your living situation today?: I have a steady place to live Within the past 12 months, did the food you bought not last and you didn't have the money to get more?: Never true Within the past 12 months, did you worry whether your food would run out before you got money to buy more?: Never true Do you have trouble paying for medicines?: No Do you have trouble getting transportation to medical appointments?: No Do you have trouble paying your heating and electricity bill?: No Do you have trouble taking care of your child, family member or friend?: No Do you have trouble with day-to-day activities such as bathing, preparing meals, shopping, managing finances, etc.?: No Are you currently unemployed and looking for a job?: No Are you interested in more education?: No Please select the resources that you would like help with: None Currently or been in a relationship where the following occur: No concerns reported THRIVE Score: 0 VICKY-7 AMB Questionnaire VICKY-7 Date VICKY - 7 assessed: 01/21/25 Source: Developed by Drs. Boaz Fuentes, Brielle Arellano, Lei Morillo and colleagues, with an educational mckenzie from [employer]. Review of Systems Const Reports fatigue, Denies headache(s) and Denies weakness ENT Denies dizziness and Denies headache(s) Card Denies dyspnea Resp Denies cough, Denies dyspnea, Denies wheezing and Denies other (shortness of breath) Musc Denies numbness and Denies tingling Neuro Denies dizziness, Denies headache(s), Denies numbness, Denies tingling and Denies weakness Psych Denies anxiety and Denies depression Endo Reports fatigue Aller/Immun Denies wheezing Physical exam (Primary Care) Vital Signs: Last Vital Signs Temp 97.7 F 04/26/25 10:38 Pulse 71 04/26/25 10:38 Resp 14 04/26/25 10:38 BP 102/58 L 04/26/25 10:38 Pulse Ox 97 04/26/25 10:38 Oxygen Delivery Method Room Air 04/26/25 10:38 BMI result Body Mass Index 22.9 Tobacco/Smoking Status: Tobacco use Status Tobacco use date assessed 04/26/25 04/26/25 10:44 Patient Tobacco Use Status Current everyday Tobacco 04/26/25 10:38 Tobacco use type Cigarette 04/26/25 10:38 e-Cigarette/Vaping Use Never Used 04/26/25 10:38 Thrive Assessment: Date of Thrive Assessment Date Thrive assessed 09/15/24 04/26/25 10:33 Currently or been in a relationship where the following occur: No concerns reported Const General: well developed; No acute distress Nutritional Appearance: well nourished Orientation/consciousness: patient oriented x3 HENMT Head: Yes normocephalic and Yes atraumatic Eyes General: appearance normal, both eyes and all related structures Pupils: Equal, round and reactive pupils present EOM: EOMs intact bilaterally Resp Effort & Inspection: normal respiratory effort Neuro General: patient oriented x3 and gait normal Cranial nerves: Yes Equal, round and reactive pupils present Psych Affect: normal affect Results AMB Hemoglobin A1c AMB Hemoglobin A1c 6.3 % Last Edit by Loli Alcocer CMA on 04/26/25 10:51 Results Reviewed Results Reviewed: Laboratory Last Values Hgb A1c (Clinic) 6.3 % (4.0-6.0) H 04/26/25 10:44 Coding Level of Care Code Est Pt Level 4 (72957) Diagnoses Type 2 diabetes mellitus with hyperglycemia, without long-term current use of insulin E11.65 Diabetes mellitus complication status: with hyperglycemia Diabetes mellitus usp 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 Good control. Goal is less than 7.0% Continue current medication regimen and keep working at a diet low in sugars and starches (2) Elevated TSH: Code(s): R79.89 - Other specified abnormal findings of blood chemistry Category: Medical Plan: TSH is again slightly above the normal range She does note very mild intermittent fatigue which may not be related We will continue to monitor this and patient agrees with this strategy (3) Fatigue: Code(s): R53.83 - Other fatigue Category: Medical Plan: As above (4) Urinary frequency: Code(s): R35.0 - Frequency of micturition Category: Medical Plan: Patient has complaint of frequent urination with small volumes and also discomfort with urination Will start Macrobid Sending urine for urinalysis and C&S (5) Hyperlipidemia: Code(s): E78.5 - Hyperlipidemia, unspecified Category: Medical Qualifiers: Hyperlipidemia type: mixed hyperlipidemia Qualified Code(s): E78.2 - Mixed hyperlipidemia Plan: She is taking atorvastatin as prescribed Recheck lipids with next blood draw Orders: Orders Urine Culture Today R35.0 - Frequency of micturition Free T4 (Free Thyroxine) Today E03.9 - Hypothyroidism, unspecified, R79.89 - Other specified abnormal findings of blood chemistry AMB Hemoglobin A1c Today E11.65 - Type 2 diabetes mellitus with hyperglycemia UA CC w/rflx Micro + Cult Today R35.0 - Frequency of micturition, Z00.00 - Encounter for general adult medical examination without abnormal findings Thyroid Stimulating Hormone Today E03.9 - Hypothyroidism, unspecified, R79.89 - Other specified abnormal findings of blood chemistry Triiodothyronine T3 Total Today E03.9 - Hypothyroidism, unspecified, R79.89 - Other specified abnormal findings of blood chemistry Lipid Panel Today E78.2 - Mixed hyperlipidemia, Z00.00 - Encounter for general adult medical examination without abnormal findings Basic Metabolic Panel Fasting Today E78.2 - Mixed hyperlipidemia Medications: New nitrofurantoin monohyd/m-cryst 100 mg (Macrobid) must administer with a meal/food 100 mg PO BID 14 caps 0RF 7 days
[2025-04-26 10:38] VITALS: BP 102/58; PULSE 71; RESP 14; TEMP 36.5; O2SAT 97; BMI 22.9
--- OUTSIDE RECORDS SUMMARY | 2025-04-26 11:36 | XMS_ITS | Clinical Summary ---
Author Organization [facility] Address [address] [place] [phone] Phone Care Team Providers Care Medical Technical Writer Name Role Phone Pcp, None Primary Care [...] of Treatment Not on file Care Teams Medical Technical Writer Relationship Specialty Start Date End Date Pcp, None, PCP - General 6/10/23
== END 2025-04-26 11:24 | disposition home or self-care (01) ==
PROVIDERS: PCP Family Medicine; Visit Provider Family Medicine
DX: E11.65 Type 2 diabetes mellitus with hyperglycemia (principal); R79.89 Other specified abnormal findings of blood chemistry; R53.83 Other fatigue; R35.0 Frequency of micturition; E78.2 Mixed hyperlipidemia

== ENCOUNTER 2025-04-26 10:26 | Outpatient (REF) | payer OTHER, SELFPAY ==
[2025-04-26 14:51] LABS: Appearance Urine Cloudy; Glucose Urine UA Negative (Negative); PH 6.0 (5.0-9.0); Specific Gravity - Urine 1.015 (1.005-1.025); UMIC TRIGGER UACC YES
[2025-04-26 15:10] LABS: UACC Culture Trigger YES
== END 2025-04-26 10:27 | disposition home or self-care (01) ==
LOC: HO.LAB 10:26
PROVIDERS: PCP Family Medicine; Visit Provider Family Medicine
DX: Z00.00 Encounter for general adult medical examination without abnormal findings (principal); R35.0 Frequency of micturition; E11.65 Type 2 diabetes mellitus with hyperglycemia; R79.89 Other specified abnormal findings of blood chemistry; R53.83 Other fatigue; E78.2 Mixed hyperlipidemia; Z79.84 Long term (current) use of oral hypoglycemic drugs; Z79.899 Other long term (current) drug therapy
CPT/HCPCS: 81001; 83036; 87086; 87088; 87186